=== PATIENT | female | born 1950 | race Caucasian/White ===

== ENCOUNTER 2020-04-30 22:16 | Emergency (ER) | payer MEDICARE ==
[~2020-04-30] VITALS: Ht 162.6 cm; Wt 53.0 kg
--- NOTE | 2020-04-30 22:22 | NUR ---
Daughter- Elma [phone]
--- NOTE | 2020-04-30 22:25 | NUR ---
Pt states she is a daily drinker, and normally only drinks beer. Patient states that she was doing shots of tequilla tonight. Lost her balance while putting out a cigarettes hitting face. Noted to have lac on left side of nose. Patient alert and oriented x4. Steady gait. Denies LOC. Provider at bedside.
[2020-04-30] MEDS ORDERED: LIDOCAINE 2%, 20ML SQ ONE (22:30)
[2020-04-30] MEDS ORDERED: DIPH,PERTUSS(ACELL),TET VAC/PF 0.5 ML IM-VACC ONE ×2 (22:30→22:54)
[2020-04-30] MEDS ORDERED: LIDOCAINE-MPF 2% ,5ML ONE (22:54)
[2020-04-30] MEDS ORDERED: PLEASE ENTER ALLERGIES MC SCH (23:00)
[2020-05-01] MEDS ORDERED: NEOSPORIN OINT. PKT 1 PACKET ONE (00:01)
[2020-05-01 00:27] VITALS: BP 145/87
== END 2020-05-01 00:28 | disposition home or self-care (01) ==
LOC: ED 22:46
DX: S06.0X0A Concussion without loss of consciousness, initial encounter (principal); S01.21XA Laceration without foreign body of nose, initial encounter; F10.120 Alcohol abuse with intoxication, uncomplicated; M19.90 Unspecified osteoarthritis, unspecified site; F17.200 Nicotine dependence, unspecified, uncomplicated; X58.XXXA Exposure to other specified factors, initial encounter; Y93.89 Activity, other specified; Y92.89 Other specified places as the place of occurrence of the external cause; Y99.8 Other external cause status; Y90.0 Blood alcohol level of less than 20 mg/100 ml
CPT/HCPCS: 12052; 70450; 90471; 90715; 99284; J3490

== ENCOUNTER 2021-01-05 11:22 | Emergency (ER) | payer MEDICARE ==
[~2021-01-05] VITALS: Ht 160 cm; Wt 56.3 kg
--- NOTE | 2021-01-05 12:03 | NUR ---
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
[2021-01-05 12:32] LABS: BASOPHILS % (AUTO) 1 % (0-1); EOSINOPHILS % (AUTO) 2 % (1-7); LYMPHOCYTES % (AUTO) 12 % (22-44); MEAN CORPUSCULAR HEMOGLOBIN 33.2 pg (27.0-34.8); MEAN CORPUSCULAR HGB CONC 34.4 g/dL (32.4-35.8); MEAN PLATELET VOLUME 6.6 fL (7.4-10.4); MONOCYTES % (AUTO) 13 % (2-9); NEUTROPHILS % (AUTO) 72 % (42-75); PLATELET COUNT 409 x10^3/uL (130-400); RED BLOOD COUNT 3.55 x10^6/uL (3.82-5.3); RED CELL DISTRIBUTION WIDTH 13.5 % (9.6-15.2)
[2021-01-05 12:45] LABS: ALBUMIN 3.5 g/dL (3.4-5.0); ANION GAP 2 mmol/L (5-15); CALCIUM 9.1 mg/dL (8.5-10.1); CHLORIDE 98 mmol/L (98-107)
--- NOTE | 2021-01-05 14:50 | NUR ---
patient to room from lobby
--- NOTE | 2021-01-05 14:58 | NUR ---
PT C/O BLOOD IN URINE, INCREASED FREQ, AND DYSURIA. PT DENIES N/V, ABD PAIN, OR FEVER. PT HAS A HX OF HAVING BLOODY URINE BUT DENIES UTI OR KIDNEY ISSUES. PT IN GOWN. NAD. CONNECTED TO MONITORING EQUIPMENT. RAIL UP. CALLLIGHT WITHIN REACH.
[2021-01-05 15:52] LABS: MICROSCOPIC INDICATED
[2021-01-05 17:10] VITALS: BP 169/87
--- NOTE | 2021-01-05 17:11 | NUR ---
TASK RN: Patient/Caregiver given discharge instructions and they have confirmed that they understand the instructions. Patient ambulatory with steady gait. NAD, all questions answered appropriately, denies additional needs at this time. No personal belongings left in room after discharge.
== END 2021-01-05 17:24 | disposition home or self-care (01) ==
LOC: ED 17:19
DX: N30.01 Acute cystitis with hematuria (principal); F17.210 Nicotine dependence, cigarettes, uncomplicated
CPT/HCPCS: 36415; 80048; 81001; 82040; 85025; 87077; 87086; 87186; 99283; 99406